=== PATIENT | female | born 1995 | race Caucasian/White ===

== ENCOUNTER 2018-08-29 09:48 | Emergency (ER) | payer BC ==
--- NOTE | 2018-08-29 11:07 | EDM.PDOC ---
ED HPI GENERAL MEDICAL PROBLEM - General Chief Complaint: Lower Extremity Injury/Pain Stated Complaint: ROLLED RT ANKLE Time Seen by Provider: 08/29/18 11:02 Source of Information: Reports: Patient, Family, RN Notes Reviewed History Limitations: Reports: No Limitations - History of Present Illness INITIAL COMMENTS - FREE TEXT/NARRATIVE: 22-year-old female presents to emergency department today with complaint of right ankle pain she accidentally rolled her ankle inward last night and now has pain and swelling over the ankle and cannot bear weight Right Ankle Pain Score (Numeric/FACES): 7 - Related Data Allergies Allergy/AdvReac Type Severity Reaction Status Date / Time No Known Allergies Allergy Verified 08/29/18 10:30 Home Meds: Home Meds NK [No Known Home Meds] 08/29/18 [History] Past Medical History Respiratory History: Reports: Asthma - Past Surgical History HEENT Surgical History: Reports: Tonsillectomy Social & Family History - Tobacco Use Smoking Status *Q: Current Some Day Smoker Years of Tobacco use: 10 Packs/Tins Daily: 0.5 - Caffeine Use Caffeine Use: Reports: Soda Review of Systems - Review of Systems Review Of Systems: See Below Musculoskeletal: Reports: Joint Pain ED EXAM, GENERAL - Physical Exam Exam: See Below Free Text/Narrative:: Examination of the ankle I do appreciate some edema per family over the lateral malleolus pedal pulses +2 there is no erythema, she is tender to drawer testing of the mortise and tender to palpation along the lateral malleolus Course - Vital Signs Last Recorded V/S: Last Vital Signs Temp 97.4 F 08/29/18 10:31 Pulse 91 08/29/18 10:31 Resp 16 08/29/18 10:31 BP 132/80 08/29/18 10:31 Pulse Ox 97 08/29/18 10:31 - Orders/Labs/Meds Orders: Active Orders 24 hr Category Date Time Status DME for Discharge [COMM] Urgent Oth 08/29/18 12:42 Ordered Departure - Departure Time of Disposition: 12:44 Disposition: Home, Self-Care 01 Condition: Fair Clinical Impression: Ankle sprain Qualifiers: Encounter type: initial encounter Involved ligament of ankle: unspecified ligament Laterality: right Qualified Code(s): S93.401A - Sprain of unspecified ligament of right ankle, initial encounter - Discharge Information Referrals: PCP,None [Primary Care Provider] - Forms: ED Department Discharge Additional Instructions: Use Tylenol Motrin as needed for pain control, continue to use the boot for comfort and follow up primary care 3-5 days if no improvement, call or return to the emergency department with worsening symptoms. - My Orders Last 24 Hours: My Active Orders 08/29/18 12:42 DME for Discharge [COMM] Urgent - Assessment/Plan Last 24 Hours: My Active Orders 08/29/18 12:42 DME for Discharge [COMM] Urgent Plan: Assessment Acuity = acute Site and laterality = right ankle sprain Etiology = secondary to twisting injury Manifestations = edema Location of injury = Home Lab values = x-rays negative for fracture Plan She is placed in a walking boot for comfort she has crutches at home follow up with primary care 3-5 days This note was dictated using [employer] voice recognition software please call with any questions on syntax or grammar.
--- NOTE | 2018-08-29 11:46 | CRLCR ---
INDICATION: Pain, inversion injury TECHNIQUE: Right ankle 3 views COMPARISON: None FINDINGS: Bones: Alignment is normal. No fractures or bone lesions. Joint spaces: Unremarkable. Soft tissues: There is lateral soft tissue swelling. Dictated by: Cmaeron Zimmer MD @ 08/29/2018 11:43:51 (Electronically Signed)
== END 2018-08-29 13:11 | disposition home or self-care (01) ==
LOC: JP.ED 09:48
DX: S93.401A Sprain of unspecified ligament of right ankle, initial encounter (principal); X50.0XXA Overexertion from strenuous movement or load, initial encounter
CPT/HCPCS: 73610-RT; 99283-25